=== PATIENT | female | born 1995 | race Caucasian/White ===

== ENCOUNTER 2021-06-08 22:38 | Emergency (ER) | payer BC ==
[~2021-06-08] VITALS: Ht 152.4 cm; Wt 59.1 kg
[2021-06-09] MEDS ORDERED: KETOROLAC 30 MG/ML 1ML VIAL IV ONE (00:05)
[2021-06-09] MEDS ORDERED: ONDANSETRON 4MG/2ML VIAL IV ONE (00:05)
[2021-06-09] MEDS ORDERED: NS 1,000 ML IV ONE (00:10)
[2021-06-09 00:17] LABS: BASO % 0.2 % (0.0-1.0); EOS % 0.4 % (0.0-3.0); HEMATOCRIT 42.8 % (36.0-47.0); HEMOGLOBIN 14.8 g/dl (12.0-15.5); LYMPH % 12.6 % (24.0-44.0); MEAN CORPUSCULAR HEMOGLOBIN 30.5 pg (27.0-33.0); MEAN CORPUSCULAR HGB CONC 34.6 g/dl (32.0-36.5); MEAN CORPUSCULAR VOLUME 88.1 fl (80.0-96.0); MONO # 0.5 10^3/uL (0.0-0.8); MONO % 6.7 % (2.0-8.0); NEUTROPHILS # 6.5 10^3/uL (1.5-8.5); NEUTROPHILS % 79.9 % (36.0-66.0); PLATELET COUNT, AUTOMATED 181 10^3/uL (150-450); RED BLOOD COUNT 4.86 10^6/uL (4.00-5.40); WHITE BLOOD COUNT 8.1 10^3/uL (4.0-10.0)
[2021-06-09 00:38] LABS: ALBUMIN 3.7 GM/DL (3.2-5.2); ALT/SGPT 29 U/L (12-78); BILIRUBIN,DIRECT 0.2 MG/DL (0.0-0.2); BILIRUBIN,TOTAL 0.7 MG/DL (0.2-1.0); BLOOD UREA NITROGEN 11 MG/DL (7-18); CALCIUM LEVEL 8.7 MG/DL (8.5-10.1); CARBON DIOXIDE LEVEL 26 MEQ/L (21-32); CHLORIDE LEVEL 105 MEQ/L (98-107); CREATININE FOR GFR 0.72 MG/DL (0.55-1.30); GLOMERULAR FILTRATION RATE > 60.0 (>60); GLUCOSE, FASTING 96 MG/DL (70-100); LIPASE 171 U/L (73-393); POTASSIUM SERUM 3.7 MEQ/L (3.5-5.1); SODIUM LEVEL 137 MEQ/L (136-145); TOTAL PROTEIN 7.4 GM/DL (6.4-8.2)
[2021-06-09 00:50] LABS: HCG, SERUM QUALITATIVE NEGATIVE (NEGATIVE)
[2021-06-09] MEDS ORDERED: ISOVUE-370 76% 100ML VIAL As Ordered ONE (01:35)
[2021-06-09 01:38] LABS: C REACTIVE PROTEIN QUANTITATIV 5.39 MG/DL (0.00-0.30)
[2021-06-09] MEDS ORDERED: METOCLOPRAMIDE INJ 10MG/2ML VIAL (J2765 PER 1) IV ONE (01:50)
[2021-06-09 01:52] LABS: ERYTHROCYTE SEDIMENTATION RATE 22 mm/hr (0-20)
[2021-06-09] MEDS ORDERED: REGL5TAB2 PO (03:13)
[2021-06-09] MEDS ORDERED: KETO10TAB PO (03:13)
[2021-06-09 03:26] VITALS: BP 128/56
== END 2021-06-09 03:27 | disposition home or self-care (01) ==
LOC: M ED 22:38
DX: K52.9 Noninfective gastroenteritis and colitis, unspecified (principal)
CPT/HCPCS: 74177; 80048; 80076; 83690; 84703; 85025; 85652; 86140; 96361; 96374; 96375; 99283; J1885; J2405; J2765; Q9967